=== PATIENT | female | born 1955 | race Caucasian/White ===

== ENCOUNTER 2020-04-15 08:02 | Outpatient (CLI) | payer OTHER, SELFPAY ==
--- NOTE | ~2020-04-15 | DEXA_ITS ---
Bone Density Report Name: Nida Patel Age: 64 Sex: Female Ethnicity: White Date of : 1955 Indication: postmenopausal; height loss; Referring Provider: JAMIE BLACK Study: Bone densitometry was performed. Exam Date: April 15, 2020 Accession number: [id number] Bone Density: Region BMD T-score Z-score Classification AP Spine (L1, L4) 1.149 1.0 2.8 Normal Femoral Neck (Left) 0.713 -1.2 0.3 Osteopenia Total Hip (Left) 0.829 -0.9 0.3 Normal Total Hip Bilateral Avg 0.834 -0.9 0.4 Normal Femoral Neck (Right) 0.693 -1.4 0.1 Osteopenia Total Hip (Right) 0.838 -0.9 0.4 Normal World Health Organization criteria for BMD impression classify patients as: Normal (T-score at or above -1.0), Osteopenia (T-score between -1.0 and -2.5), or Osteoporosis (T-score at or below -2.5). 10-year Fracture Risk(1): Major Osteoporotic Fracture 7.7% Hip Fracture 0.7% Reported Risk Factors: [place] (), Neck BMD=0.693, BMI=39.4 (1) FRAX(R) Version 3.08. Fracture probability calculated for an untreated patient. Fracture probability may be lower if the patient has received treatment. Clinical Information Provided by Patient: Has used the following medications: Vitamin D Patient maximum height was 66 Menopause Age: 50 No regular weight bearing exercise Does not regularly consume dairy products Drinks caffeinated beverages Onset of menses at age 14 Number of children 2 Impression: The patient has low bone mass, based on the Right Femoral Neck T-score. The patient has an estimated ten-year risk of hip fracture of 0.7% and an estimated ten-year risk of major fracture of 7.7%, based on the WHO FRAX algorithm. Discussion: BONE DENSITY IS LOW AT ONE OR MORE SKELETAL SITES. This patient's lowest T-score is low at one or more skeletal sites. It meets the World Health Organization's (WHO) criteria for ?low bone mass? (T-score between -1.0 and -2.5). The patient's 10-year risk of fracture as calculated by FRAX is less than the threshold where pharmacological therapy is recommended by the National Osteoporosis Foundation (NOF). However, all treatment decisions require clinical judgment and consideration of individual patient factors, including patient preferences, comorbidities, previous drug use, risk factors not captured in the FRAX model (e.g., frailty, falls, vitamin D deficiency, increased bone turnover, interval significant decline in bone density) and possible under or overestimation of fracture risk by FRAX. The patient should follow a healthful lifestyle (good nutrition with adequate calcium and vitamin D, and appropriate weight-bearing exercise). Follow-Up: Consider repeating this study in 2 to 3 years to reassess this patient's status, or sooner if there is some new clinical indication. Reported by: AARON on
--- NOTE | ~2020-04-15 | MM_ITS ---
EXAMINATION: MM screening [facility] BI w girish HISTORY: Screening mammogram TECHNIQUE: Craniocaudal and mediolateral oblique 3-D tomosynthesis images were obtained and synthetic 2-D images were generated. CAD analysis was submitted and interpreted. COMPARISON: Comparison to multiple prior studies sequentially, with oldest reviewed study dated 06/2015. BREAST PARENCHYMAL COMPOSITION: There are scattered areas of fibroglandular density. FINDINGS: There is no evidence of suspicious mass, calcification, or architectural distortion to sugg est malignancy in either breast. There has been no suspicious interval change. IMPRESSION: 1. No mammographic evidence of malignancy. 2. Recommend routine screening mammography in one year. BI-RADS Category 1: Negative Reviewed, dictated and finalized at location A.
== END 2020-04-15 08:03 | disposition home or self-care (01) ==
PROVIDERS: Visit Provider Obstetrics & Gynecology
DX: Z12.31 Encounter for screening mammogram for malignant neoplasm of breast (principal); Z78.0 Asymptomatic menopausal state; M85.851 Other specified disorders of bone density and structure, right thigh; M85.852 Other specified disorders of bone density and structure, left thigh
CPT/HCPCS: 77063; 77067; 77080

== ENCOUNTER 2020-08-13 16:14 | Emergency (ER) | payer OTHER, SELFPAY ==
--- NOTE | ~2020-08-13 | XR_ITS ---
EXAMINATION: XR tibia fibula RT 2V INDICATION: Right leg pain TECHNIQUE: Two views of the right tibia and fibula are obtained on four radiographs. COMPARISON: None available FINDINGS: There is soft tissue swelling and laceration immediately over the distal tibia. No underlyi ng fracture is identified. There is moderate osteoarthritis of the knee. Dorsal and plantar calcaneal enthesophytes are noted. IMPRESSION: 1. Soft tissue swelling and laceration over the distal leg without underlying osseous abnormality. Reviewed, dictated and finalized at location A. IMPRESSION: 1. Soft tissue swelling and laceration over the distal leg without underlying o sseous abnormality.
[2020-08-13 16:20] VITALS: BP 121/74; PULSE 77; RESP 16; TEMP 36.6; O2SAT 99
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
[2020-08-13] MEDS: ACETAMINOPHEN 500 MG TABLET 1000 MG PO (17:01)
== END 2020-08-13 17:55 | disposition home or self-care (01) ==
PROVIDERS: Emergency Provider Nurse Practitioner Family
DX: S91.011A Laceration without foreign body, right ankle, initial encounter (principal); V18.4XXA Pedal cycle driver injured in noncollision transport accident in traffic accident, initial encounter; Z87.891 Personal history of nicotine dependence; F98.8 Other specified behavioral and emotional disorders with onset usually occurring in childhood and adolescence; I48.91 Unspecified atrial fibrillation; M19.90 Unspecified osteoarthritis, unspecified site; M17.0 Bilateral primary osteoarthritis of knee; F32.9 Major depressive disorder, single episode, unspecified; K21.9 Gastro-esophageal reflux disease without esophagitis; Z79.01 Long term (current) use of anticoagulants
CPT/HCPCS: 12004; 73590; 99213; A9270; G0463

== ENCOUNTER 2021-04-19 07:33 | Outpatient (CLI) | payer OTHER, SELFPAY ==
--- NOTE | ~2021-04-19 | MM_ITS ---
EXAMINATION: MM screening chris BI w girish HISTORY: Screening mammogram, family history of breast cancer in her sister. TECHNIQUE: Craniocaudal and mediolateral oblique 3-D tomosynthesis images were obtained and synthetic 2-D images were generated. CAD analysis was submitted and interpreted. COMPARISON: 04/15/2020, 11/21/2018, 11/01/2017 BREAST PARENCHYMAL COMPOSITION: There are scattered areas of fibroglandular density. FINDINGS: There is no evidence of suspicious mass, calcification, or architectural distortion to sugg est malignancy in either breast. There has been no suspicious interval change. IMPRESSION: 1. No mammographic evidence of malignancy. 2. Recommend routine screening mammography in one year. BI-RADS Category 1: Negative Reviewed, dictated and finalized at location A.
== END 2021-04-19 07:34 | disposition home or self-care (01) ==
PROVIDERS: Visit Provider Nurse Practitioner
DX: Z12.31 Encounter for screening mammogram for malignant neoplasm of breast (principal)
CPT/HCPCS: 77063; 77067

== ENCOUNTER 2021-12-13 11:13 | Outpatient (CLI) | payer OTHER, SELFPAY | END 2021-12-13 11:14 | disposition home or self-care (01) | LOC: ANHAUDIO 11:14 | PROVIDERS: Visit Provider Otolaryngology | DX: H90.42 Sensorineural hearing loss, unilateral, left ear, with unrestricted hearing on the contralateral side (principal) | CPT/HCPCS: 92557; 92567 ==

== ENCOUNTER → 2022-05-26 14:17 | Outpatient (CLI) | payer OTHER, SELFPAY ==
--- NOTE | ~2022-05-26 | MM_ITS ---
EXAMINATION: MM screening [facility] BI w girish HISTORY: Screening TECHNIQUE: Craniocaudal and mediolateral oblique 3-D tomosynthesis images were obtained and synthetic 2-D images were generated. CAD analysis was submitted and interpreted. COMPARISON: Comparison to multiple prior studies sequentially, with oldest reviewed study dated 09/08. BREAST PARENCHYMAL COMPOSITION: There are scattered areas of fibroglandular density. FINDINGS: There is no evidence of suspicious mass, calcification, or architectural distortion to sugg est malignancy in either breast. There has been no suspicious interval change. IMPRESSION: 1. No mammographic evidence of malignancy. 2. Recommend routine screening mammography in one year. BI-RADS Category 1: Negative Reviewed, dictated and finalized at location A.
== END ==
PROVIDERS: PCP Internal Medicine; Visit Provider Internal Medicine
DX: Z12.31 Encounter for screening mammogram for malignant neoplasm of breast (principal)
CPT/HCPCS: 77063; 77067

== ENCOUNTER 2023-06-29 00:17 | Day surgery (SDC) | payer OTHER, SELFPAY ==
[2023-06-23 11:46] VITALS: BMI 27.6
--- NOTE | 2023-06-28 17:04 | PM.HPGS ---
History of Present Illness History of Present Illness Consent: Risks, benefits, and alternatives have been discussed and questions answered. Patient agrees to proceed with procedure. Chief complaint: hx of polyps Narrative: Nida Patel is a 68 year old female referred for colon cancer screening. Her last colonoscopy was 10 years ago. She had 2 hyperplastic polyps removed at that time. A grandmother had colon cancer. Review of Systems Review of Systems: All systems reviewed & are unremarkable except as noted in HPI and below PMFSH Past Medical History Medical History ADD (attention deficit disorder) Afib Arthritis BMI 35.0-35.9,adult Cataracts, bilateral Degenerative arthritis of knee, bilateral Depression GERD (gastroesophageal reflux disease) Musculoskeletal disorder Lipoma left thigh benign, right Achilles calcified, Rectal polyp Surgical History Surgical History H/O cardiac radiofrequency ablation H/O left knee surgery meniscus scope, 2016 - Dr. Hartmann H/O mastectomy Right breast lumpectomy, benign H/O right knee surgery Meniscus scope, 2008 - Dr Serrano History of intestinal surgery Bowel surgery: Mass removed 07/2016 History of tonsillectomy Previous back surgery Family History Family History Grandparent Carcinoma of colon Sibling Family history of malignant neoplasm of cervix Family history of malignant neoplasm of breast in first degree relative Father Family history of heart disease in male family member before age 55 Hypertension Heart disease Mother Hypertension Heart disease Social History Social History Smoking status: Never smoker Alcohol intake: current Substance use: never Substance use type: does not use Living arrangements: with family Occupation/Education: retired Gender identity (if verbalized by the patient): Female Spiritual care concerns: No Meds Home Medications and Allergies Home Medications Medication Instructions Recorded Confirmed Type bupropion HCl 150 mg 24 hr tablet, 150 mg PO QAM 06/18/20 06/29/23 History extended release magnesium 200 mg tablet 200 mg PO DAILY 06/18/20 06/29/23 History rivaroxaban 20 mg tablet (Xarelto) 20 mg PO DAILY 06/18/20 06/23/23 History rosuvastatin 40 mg tablet 40 mg PO DAILY 06/18/20 06/29/23 History cholecalciferol (vitamin D3) 50 50 mcg PO DAILY 01/18/22 06/29/23 History mcg (2,000 unit) capsule cyanocobalamin (vitamin B-12) 50 50 mcg PO DAILY 01/18/22 06/29/23 History mcg tablet (Vitamin B-12) diltiazem HCl 120 mg capsule,24 120 mg PO DAILY 01/18/22 06/29/23 History hr,extended release (Tiadylt ER) Adult Probiotic 1 cap PO DAILY 06/23/23 06/29/23 History Adults Multivitamin 1 cap PO DAILY 06/23/23 06/29/23 History Glucosamine 1 cap PO DAILY 06/23/23 06/29/23 History Tri-Calcium Citrate 500 mg BYMOUTH DAILY 06/23/23 06/29/23 History Tylenol PM 2 cap PO HS 06/23/23 06/29/23 History acetaminophen 500 mg capsule 500 mg PO Q6H PRN Pain 06/23/23 06/29/23 History pantoprazole 40 mg tablet,delayed 40 mg PO DAILY 06/23/23 06/29/23 History release Allergies Allergy/AdvReac Type Severity Reaction Status Date / Time Sulfa (Sulfonamide Allergy Intermediate Unknown Verified 06/29/23 06:55 Antibiotics) Exam Const: General: alert Orientation/consciousness: patient oriented x3 Resp: Auscultation: clear to auscultation bilaterally Cardio: Rhythm: regular rhythm GI: GI Palp: Yes Soft to palpation and No Tenderness to palpation present (GI) Neuro: General: patient oriented x3 Assessment and Plan Assessment and plan (1) Colon cancer screening: Code(s): Z12.11 - Encounter for screening for malignant neoplasm of colon Status: Acute Assessment and P
[2023-06-29 06:58] VITALS: BP 131/71; PULSE 55; RESP 20; TEMP 36.1; O2SAT 99; BMI 27.7
[2023-06-29] MEDS: LACTATED RINGERS 1,000 ML 150 ML IV CONT (07:02)
--- NOTE | 2023-06-29 07:28 | WPDANESEPPF ---
Anes - Initial Pre Proc Eval Procedure: Operation Date: 06/29/23 08:00 Proposed Procedures p Colonoscopy - John Paul Ibarra MD Date/Time: 06/29/23 07:28 Surgeon: John Paul Ibarra MD Pre Op Diagnosis: hx of polyps Patient Data Age: 68 Gender: F Height: 1.68 m Weight: 78 kg Last Vital Signs Temp 36.1 C L 06/29/23 06:58 Pulse 55 L 06/29/23 06:58 Resp 20 06/29/23 06:58 BP 131/71 06/29/23 06:58 Pulse Ox 99 06/29/23 06:58 O2 Del Method Room Air 06/29/23 06:58 Allergies Allergy/AdvReac Type Severity Reaction Status Date / Time Sulfa (Sulfonamide Allergy Intermediate Unknown Verified 06/29/23 06:55 Antibiotics) Home Medications Medication Instructions Recorded Confirmed Type bupropion HCl 150 mg 24 hr tablet, 150 mg PO QAM 06/18/20 06/29/23 History extended release magnesium 200 mg tablet 200 mg PO DAILY 06/18/20 06/29/23 History rivaroxaban 20 mg tablet (Xarelto) 20 mg PO DAILY 06/18/20 06/23/23 History rosuvastatin 40 mg tablet 40 mg PO DAILY 06/18/20 06/29/23 History cholecalciferol (vitamin D3) 50 50 mcg PO DAILY 01/18/22 06/29/23 History mcg (2,000 unit) capsule cyanocobalamin (vitamin B-12) 50 50 mcg PO DAILY 01/18/22 06/29/23 History mcg tablet (Vitamin B-12) diltiazem HCl 120 mg capsule,24 120 mg PO DAILY 01/18/22 06/29/23 History hr,extended release (Tiadylt ER) Adult Probiotic 1 cap PO DAILY 06/23/23 06/29/23 History Adults Multivitamin 1 cap PO DAILY 06/23/23 06/29/23 History Glucosamine 1 cap PO DAILY 06/23/23 06/29/23 History Tri-Calcium Citrate 500 mg BYMOUTH DAILY 06/23/23 06/29/23 History Tylenol PM 2 cap PO HS 06/23/23 06/29/23 History acetaminophen 500 mg capsule 500 mg PO Q6H PRN Pain 06/23/23 06/29/23 History pantoprazole 40 mg tablet,delayed 40 mg PO DAILY 06/23/23 06/29/23 History release Patient hx anesthesia problems: none Family hx anesthesia problems: none Results Review: All pre-operative results and documents have been reviewed as part of the pre-operative evaluation. [facility] Past Medical History Medical History ADD (attention deficit disorder) Afib Arthritis BMI 35.0-35.9,adult Cataracts, bilateral Degenerative arthritis of knee, bilateral Depression GERD (gastroesophageal reflux disease) Musculoskeletal disorder Lipoma left thigh benign, right Achilles calcified, Rectal polyp Surgical History Surgical History H/O cardiac radiofrequency ablation H/O left knee surgery meniscus scope, 2016 - Dr. Hartmann H/O mastectomy Right breast lumpectomy, benign H/O right knee surgery Meniscus scope, 2008 - Dr Serrano History of intestinal surgery Bowel surgery: Mass removed 07/2016 History of tonsillectomy Previous back surgery Family History Family History Grandparent Carcinoma of colon Sibling Family history of malignant neoplasm of cervix Family history of malignant neoplasm of breast in first degree relative Father Family history of heart disease in male family member before age 55 Hypertension Heart disease Mother Hypertension Heart disease Social History Social History Smoking status: Never smoker Alcohol intake: current Substance use: never Substance use type: does not use Living arrangements: with family Occupation/Education: retired Gender identity (if verbalized by the patient): Female Spiritual care concerns: No Anes - Eval Final PreProcedure Day of Procedure 06/29/23 07:28 Patient weight: overweight Heart: regular rate and rhythm Lungs: clear to auscultation Airway: Mallampati scale class II Neurological: alert and oriented Last oral intake: >/= 8 hours ASA classification: III Emergent: no Anesthetic plan: proceed Anesthesia type and monitoring: general GIVS
[2023-06-29 08:11] VITALS: BP 109/59; PULSE 55; RESP 14; O2SAT 99
[2023-06-29 08:21] VITALS: BP 111/63; PULSE 56; RESP 12; O2SAT 99
== END 2023-06-29 08:45 | disposition home or self-care (01) ==
PROVIDERS: Visit Provider Internal Medicine Gastroenterology
PROC: 0DJD8ZZ Inspection of Lower Intestinal Tract, Via Natural or Artificial Opening Endoscopic (ICD-10-PCS; CPT 45378; principal; 2023-06-29 08:00)
DX: Z12.11 Encounter for screening for malignant neoplasm of colon (principal); K64.8 Other hemorrhoids; Z86.010 Personal history of colon polyps; I48.91 Unspecified atrial fibrillation; F98.8 Other specified behavioral and emotional disorders with onset usually occurring in childhood and adolescence; K21.9 Gastro-esophageal reflux disease without esophagitis; F32.A Depression, unspecified; Z79.01 Long term (current) use of anticoagulants
CPT/HCPCS: G0105; J2704; J7120

== ENCOUNTER 2023-08-01 09:12 | Day surgery (SDC) | payer OTHER, SELFPAY ==
--- NOTE | ~2023-08-01 | XR_ITS ---
EXAMINATION: XR fluoroscopy no charge DATE: 08/01/2023 11:10 CDT INDICATION: RT GENICULAR NERVE BLOCK X 3, VASTUS INTERMEDIUS NERVE BLOCK . TECHNIQUE: 8 fluoroscopic images of the right knee were obtained during right genicular nerve block x 3, vastus intermedius nerve block. I was not present during the procedure. Fluoroscopy exposure time was 24 seconds. Air Kerma 1.46 mGy. COMPARISON: None FINDINGS: Fluoroscopic images demonstrate injection needles about the right knee joint followed by contrast inj ection. IMPRESSION: Fluoroscopic documentation of right jugular nerve block x3, vastus intermedius nerve block. Please re lilibeth to the operative note for complete procedural details . Reviewed, dictated and finalized at location K. IMPRESSION: Fluoroscopic documentation of right jugular nerve block x3, vastus intermedius nerve block. Please refer to the operative note for complete procedural details .
--- NOTE | 2023-08-01 07:29 | WPDHPUPDATE1 ---
History and Physical Update Update Date/Time: 08/01/23 07:29 History and Physical has been reviewed, including an updated exam of the patient. There are NO changes in the patient's condition. Risks, benefits, and alternatives have been discussed and questions answered. Patient agrees to proceed with procedure.
[2023-08-01 10:25] VITALS: BP 116/81; PULSE 59; RESP 18; TEMP 36.6; O2SAT 100
[2023-08-01 11:06] VITALS: BP 133/78; PULSE 61; RESP 23; O2SAT 99
[2023-08-01 11:18] VITALS: BP 142/75; PULSE 61; RESP 15; O2SAT 98
--- NOTE | 2023-08-01 11:18 | W.PM.PROC2 ---
Procedure Note - Detailed Date of Procedure 08/01/23 Pre-op Diagnosis Bilateral Primary Osteoarthritis of Knee, Pain in right knee Post-op Diagnosis Same Procedure Performed Diagnostic blocks of the genicular nerves x3, vastus intermedius nerve x1 of the right knee under fluoroscopic guidance with contrast control. Surgeon Mich Zarate MD Anesthesia Local Indications chronic, recalcitrant right knee pain secondary to osteoarthritis. Description of Procedure INFORMED CONSENT: Risks, benefits and alternatives to the procedure were discussed in detail with the patient who expressed explicit understanding and consent to proceed. Patient was informed verbally and in written form regarding the risks associated with the procedure including the low risk of serious infection, bleeding/bruising, allergic reaction, nerve injury, paralysis, procedural site pain or discomfort, worsening pain and/or mobility, failure to treat and disfigurement. The patient expressed explicit understanding and consent to proceed. All materials required for the procedure were available prior to procedure start. Site and side was marked prior to procedure and confirmed in the presence of the patient. PROCEDURE IN DETAIL: The patient was brought to the procedural suite and placed in the supine position. Patient was made comfortable with use of pillows under the head/shoulder, knees and ankles. Skin overlying anterior, medial and lateral surface of the knee joint on the Right side was prepared broadly with ChloraPrep applicator and draped in a sterile manner. Aseptic technique was used throughout. The intersection between the femoral shaft and the medial femoral condyle, lateral femoral condyle and between the medial tibial plateau and tibial shaft were visualized in the AP view, as well as the line bisecting the femur and perpendicular to the short axis of the joint space 6cm proximal to the superior border of the patella with the knee partially flexed at 120 degrees. Local anesthesia was established by infiltration with approximately 3 mL of 2% lidocaine via a 1-1/2 inch 27-gauge needle at the skin and soft tissues overlying each site. A 25-gauge 3.5 inch quincke spinal needle was advanced until the needle tip contacted periosteum at each location, and was then walked off medially to approximate the position of the Superior and Inferior Medial Genicular nerves or laterally to approximate the position of the Superior Lateral Genicular nerve, and just superficial to femoral periosteum 6cm proximal to the patella to block the Vastus intermedius nerve. Needle depth was verified in the lateral view revealing appropriate needle positioning at each location. 0.5ml of Omnipaque 300 contrast medium was injected at each site confirming appropriate perineural spread of contrast without evidence of intravascular or intra-articular spread. After repeat negative aspiration, 0.5-1.0ml of 0.5% PF Bupivacaine was injected at each site to block the respective nerves. Needle was removed completely intact without difficulty. Images were saved and documented in the patient chart. Patient's skin was cleansed and sterile bandage applied. The patient tolerated the procedure well. The patient was transported to the recovery area in stable condition where they were observed for an appropriate amount of time prior to discharge, without evidence of complication. Patient was instructed on the appropriate completion of a pain diary over the next 12-24 hours. The patient was instructed to avoid excessive activity for the next 48 hours, including climbing and frequent use of stairs. Showers only for 48 hours. They were instructed not to drive or operate heavy machinery for 24 hours. They are to monitor for severe headaches, fevers, chills, night sweats, erythema/swelling at the site or any other signs of infection, bleeding/bruising, bowel or bladder changes as well as new pain, weakness or numbness in the upper or lower extre
[2023-08-01 11:23] VITALS: BP 128/76; PULSE 56; RESP 16; O2SAT 100
--- NOTE | 2023-08-01 11:46 | SUR.PHASEII ---
1135; DR JUSTICE AT BEDSIDE. PT AND SPOUSE ASKED IF SHE COULD PLAY TENNIS TODAY. DR JUSTICE SAID NO, AND NOT TO STRAIN THE KNEE FOR A FEW DAYS. PT ALSO TOLD DR JUSTICE SHE WAS A LITTLE DIZZY AFTER THE PROCEDURE. VITAL SIGNS STABLE. ENCOURAGED PT TO STAND SLOWLY TODAY AND IF DIZZINESS WORSENS OR CONTINUES TO CALL DR JUSTICE'S OFFICE. PT VERBALIZED UNDERSTANDING.
[2023-08-01] MEDS: LIDOCAINE HCL 1% PF INJ 5 ML VIAL 6 ML XX (12:00)
[2023-08-01] MEDS: BUPivacaine HCL 0.5% 10 ML AMP 3 ML INFILTRATE (12:02)
== END 2023-08-01 11:38 | disposition home or self-care (01) ==
PROVIDERS: Visit Provider Anesthesiology Pain Medicine
PROC: (CPT 64454; principal; 2023-08-01 10:30)
DX: M17.11 Unilateral primary osteoarthritis, right knee (principal); M25.561 Pain in right knee
CPT/HCPCS: 64454; 99199

== ENCOUNTER 2023-09-05 05:51 | Day surgery (SDC) | payer OTHER, SELFPAY ==
[2023-09-04 09:42] VITALS: BMI 28.4
--- NOTE | 2023-09-04 13:37 | WPDANESEPPF ---
Anes - Initial Pre Proc Eval Procedure: Operation Date: 09/05/23 07:30 Proposed Procedures p Water Cooled Thermal Radiofrequency Ablation Right Knee Genicular Peripheral Nerve x4 and Vastus Intermedius Peripheral Nerve x1 - Mich Zarate MD Date/Time: 09/04/23 13:37 Surgeon: Mich Zarate MD Pre Op Diagnosis: Bilateral Primary Osteoarthritis Knee Patient Data Age: 68 Gender: F Height: 1.68 m Weight: 80 kg Allergies Allergy/AdvReac Type Severity Reaction Status Date / Time Sulfa (Sulfonamide Allergy Intermediate Unknown Verified 09/05/23 06:17 Antibiotics) Home Medications Medication Instructions Recorded Confirmed Type bupropion HCl 150 mg 24 hr tablet, 150 mg PO QAM 06/18/20 09/04/23 History extended release magnesium 200 mg tablet 200 mg PO DAILY 06/18/20 09/04/23 History rivaroxaban 20 mg tablet (Xarelto) 20 mg PO DAILY 06/18/20 09/05/23 History rosuvastatin 40 mg tablet 40 mg PO DAILY 06/18/20 09/04/23 History cholecalciferol (vitamin D3) 50 50 mcg PO DAILY 01/18/22 09/04/23 History mcg (2,000 unit) capsule cyanocobalamin (vitamin B-12) 50 50 mcg PO DAILY 01/18/22 09/04/23 History mcg tablet (Vitamin B-12) diltiazem HCl 120 mg capsule,24 120 mg PO DAILY 01/18/22 09/04/23 History hr,extended release (Tiadylt ER) Adult Probiotic 1 cap PO DAILY 06/23/23 09/04/23 History Adults Multivitamin 1 cap PO DAILY 06/23/23 09/04/23 History Glucosamine 1 cap PO DAILY 06/23/23 09/04/23 History Tri-Calcium Citrate 500 mg BYMOUTH DAILY 06/23/23 09/04/23 History Tylenol PM 2 cap PO HS 06/23/23 09/04/23 History acetaminophen 500 mg capsule 500 mg PO Q6H PRN Pain 06/23/23 09/04/23 History pantoprazole 40 mg tablet,delayed 40 mg PO DAILY 06/23/23 09/04/23 History release escitalopram oxalate 10 mg tablet mg PO 08/14/23 History potassium chloride 10 mEq 10 meq PO BID 09/04/23 09/04/23 History tablet,extended release Patient hx anesthesia problems: none Family hx anesthesia problems: none Results Review: All pre-operative results and documents have been reviewed as part of the pre-operative evaluation. [facility] Past Medical History Medical History (Updated 09/04/23 @ 13:38 by Simeon Barker DO) ADD (attention deficit disorder) Afib Arthritis BMI 35.0-35.9,adult Cataracts, bilateral Degenerative arthritis of knee, bilateral Depression GERD (gastroesophageal reflux disease) Hyperlipidemia Hypertension Musculoskeletal disorder Lipoma left thigh benign, right Achilles calcified, NEDA (obstructive sleep apnea) Rectal polyp Surgical History Surgical History H/O cardiac radiofrequency ablation H/O left knee surgery meniscus scope, 2016 - Dr. Hartmann H/O mastectomy Right breast lumpectomy, benign H/O right knee surgery Meniscus scope, 2008 - Dr Serrano History of intestinal surgery Bowel surgery: Mass removed 07/2016 History of tonsillectomy Previous back surgery Family History Family History Grandparent Carcinoma of colon Sibling Family history of malignant neoplasm of cervix Family history of malignant neoplasm of breast in first degree relative Father Family history of heart disease in male family member before age 55 Hypertension Heart disease Mother Hypertension Heart disease Social History Social History Smoking status: Never smoker Second hand tobacco smoke exposure: No Alcohol intake: unknown Substance use: never Substance use type: does not use Living arrangements: with family Occupation/Education: retired Gender identity (if verbalized by the patient): Female Sexual Orientation (if Verbalized by the Patient): Straight or Heterosexual Spiritual care concerns: No Anes - Eval Final PreProcedure Day of Procedure 09/04/23 13:37 Patient weight:
--- NOTE | ~2023-09-05 | XR_ITS ---
XR fluoroscopy no charge Indication: Thermal radiofrequency ablation of the right knee TECHNIQUE: Fluoroscopy used during Thermal radiofrequency ablation of the right knee performed by Dr Hamlin [Mich Zarate MD] on 09/05/2023. 7 fluoroscopic images. FINDINGS: Correlate with procedure note. IMPRESSION: Fluoroscopy used during Thermal radiofrequency ablation of the right knee. Please refer t o procedural report for details. Reviewed, dictated and finalized at location A. IMPRESSION: Fluoroscopy used during Thermal radiofrequency ablation of the righ t knee. Please refer to procedural report for details.
--- NOTE | 2023-09-05 05:36 | WPDHPUPDATE1 ---
History and Physical Update Update Date/Time: 09/05/23 05:36 History and Physical has been reviewed, including an updated exam of the patient. There are NO changes in the patient's condition. Risks, benefits, and alternatives have been discussed and questions answered. Patient agrees to proceed with procedure.
[2023-09-05 06:18] VITALS: BP 114/69; PULSE 60; RESP 18; O2SAT 98
[2023-09-05 06:21] VITALS: BMI 27.7
[2023-09-05] MEDS: LACTATED RINGERS 1,000 ML 30 ML IV CONT ×2 (06:38→09:10)
[2023-09-05] MEDS: LIDOCAINE HCL 2% PF INJ 5 ML VIAL 10 ML INFILTRATE (08:32)
[2023-09-05] MEDS: LIDOCAINE HCL 1% PF INJ 5 ML VIAL INFILTRATE (08:33)
[2023-09-05] MEDS: BUPivacaine HCL 0.5% 10 ML AMP 5 ML INFILTRATE (08:33)
[2023-09-05 08:43] VITALS: BP 113/65; PULSE 54; RESP 14; O2SAT 100
--- NOTE | 2023-09-05 08:46 | W.PM.PROC2 ---
Procedure Note - Detailed Date of Procedure 09/05/23 Pre-op Diagnosis Bilateral Primary Osteoarthritis Knee, Pain in Right Knee Post-op Diagnosis Same Procedure Performed Water cooled radiofrequency ablation of the genicular nerve times 3, vastus intermedius nerve x1 and lateral inferior genicular nerve articular branches supplying the right knee joint under fluoroscopic guidance Surgeon Mich Zarate MD Anesthesia MAC and Local Indications chronic recalcitrant right knee pain secondary to osteoarthritis Description of Procedure INFORMED CONSENT: Risks, benefits and alternatives to the procedure were discussed in detail with the patient who expressed explicit understanding and consent to proceed. Patient was informed verbally and in written form regarding the risks associated with the procedure including the low risk of serious infection, bleeding/bruising, allergic reaction, nerve injury, paralysis, procedural site pain or discomfort, worsening pain and/or mobility, failure to treat and disfigurement. The patient expressed explicit understanding and consent to proceed. All materials required for the procedure were available prior to procedure start. Site and side was marked prior to procedure and confirmed in the presence of the patient. PROCEDURE IN DETAIL: The patient was brought to the procedural suite and placed in the supine position. Patient was made comfortable with use of pillows under the head/shoulder, knees and ankles. Skin overlying anterior, medial and lateral surface of the knee joint on the right side was prepared broadly with ChloroPrep applicator and draped in a sterile manner. Aseptic technique was used throughout. The intersection between the femoral shaft and the medial femoral condyle, lateral femoral condyle and between the medial tibial plateau and tibial shaft were visualized in the AP view with the knee extended at 180 degrees. Local anesthesia was established by infiltration with approximately 3 mL of 2% lidocaine via a 1-1/2 inch 27-gauge needle at the skin and soft tissues overlying each site. One 17-gauge 100 mm [employer] water-cooled RF cannula was advanced until the needle tip contacted periosteum at the intersection of the medial femoral condyle and femoral shaft and advanced medially and posteriorly until approximating the position of the medial superior genicular nerve. Impedance levels were within normal limits. Motor testing was performed at a frequency of 2 Hz to a current of 3.0 mAmps through each needle with no evidence of motor stimulation. After negative aspiration, 2ml of a 1:1 admixture of 0.25% PF Bupivacaine and 2% lidocaine was injected at the intended site to establish anesthesia. Needle stylette was replaced with a water-cooled electrode from the kitchen food assembler-supplied kit. After a 90s delay, lesioning was then performed at the target site for 150s to a temperature of 60 degrees Centigrade. The needle was then retracted 10mm and repeat lesions were performed in a similar manner. [place] were then re-styletted and removed without difficulty. Needle was then repositioned to contact the periosteum at the location of the remaining targeted peripheral nerves and advanced medially and dorsally to approximate the position of the Inferior Medial Genicular nerve, laterally and dorsally to approximate the position of the Superior Lateral Genicular nerve just past midshaft in each location, and just above periosteum at the midline of the femoral shaft approximately 6cm superior to the superior patellar border to approximate the position of the vastus intermedius nerve. Additional needle was placed at the distal third of the fibular side of the proximal tib-fib articulation to approximate the position of the lateral inferior genicular nerve articular branches. After a 90s delay, lesioning was then performed at each additional target site for 150s to a temperature of 60 degrees Centigrade. The needle was then re
[2023-09-05 08:53] VITALS: BP 113/67; PULSE 50; RESP 14; O2SAT 98
[2023-09-05 09:03] VITALS: BP 113/73; PULSE 50; RESP 16; O2SAT 97
[2023-09-05 09:13] VITALS: BP 115/73; PULSE 60; RESP 16; O2SAT 99
--- NOTE | 2023-09-05 12:20 | WPDANESPN ---
Anes - Prog Note Post-Op Date/Time: 09/05/23 12:20 Cardiovascular status: normal Respiratory status: normal Airway patency: baseline Mental status: baseline Post-Op hydration status: normal Vital Signs: Last Vital Signs Pulse 60 09/05/23 09:13 Resp 16 09/05/23 09:13 BP 115/73 09/05/23 09:13 Pulse Ox 99 09/05/23 09:13 O2 Del Method Room Air 09/05/23 09:13 O2 Flow Rate 8 09/05/23 08:43 Pain Score (VAS): 1 I/O: Intake & Output 09/04/23 09/05/23 09/05/23 23:59 07:59 15:59 Intake Total 1100 Balance 1100 Post-procedural complaints: none Patient Feedback: Patient satisfied with anesthetic care. Other Findings: Patient vital signs back to baseline. Patient denies nausea and vomiting. Patient's pain under control. Patient OK for discharge.
== END 2023-09-05 09:36 | disposition home or self-care (01) ==
LOC: ASC 05:59
PROVIDERS: Visit Provider Anesthesiology Pain Medicine
PROC: (CPT 64624; principal; 2023-09-05 07:30)
DX: M17.11 Unilateral primary osteoarthritis, right knee (principal); M25.561 Pain in right knee
CPT/HCPCS: 64624; 99199

== ENCOUNTER → 2023-09-19 11:16 | Outpatient (CLI) | payer OTHER, SELFPAY ==
--- NOTE | ~2023-09-19 | US_ITS ---
EXAMINATION: US thyroid DATE: 09/19/2023 11:34 INDICATION: Disorder of thyroid, unspecified. TECHNIQUE: Multiple ultrasound images of the thyroid were obtained. COMPARISON: None. FINDINGS: The right thyroid lobe measures 4.8 x 1.9 x 1.7 cm. The left thyroid lobe measures 4.8 x 2.0 x 2.0 c m. The thyroid demonstrates heterogeneous echogenicity. Vascularity is increased. In the right thyro id lobe, there is a 5 mm solid, hypoechoic, wider than tall nodule with smooth margin without echogen ic foci (TI-RADS TR4). In the right thyroid lobe, there is a 7 mm solid, hypoechoic, wider than tall nodule with smooth margin without echogenic foci (TR4). In the left thyroid lobe, there is a 2.5 cm s olid, isoechoic, wider than tall nodule ill-defined margin without echogenic foci (TR3). In the right thyroid lobe, there is a 12 mm solid, hypoechoic, wider than tall nodule with lobulated margin witho ut echogenic foci (TR4). IMPRESSION: 1. Multinodular goiter. Ultrasound-guided fine aspiration of the 2.5 cm left thyroid nodule is recomm ended. 2. Heterogeneous, hypervascular thyroid, likely chronic lymphocytic (Anurag) thyroiditis. Reviewed, dictated and finalized at location A. T SPECIALIST IMPRESSION: 1. Multinodular goiter. Ultrasound-guided fine aspiration of the 2.5 cm left th yroid nodule is recommended. 2. Heterogeneous, hypervascular thyroid, likely chronic lymphocytic (Anurag) thyroiditis.
== END ==
PROVIDERS: Visit Provider Nurse Practitioner
DX: E04.2 Nontoxic multinodular goiter (principal)
CPT/HCPCS: 76536

== ENCOUNTER → 2023-10-06 09:54 | Outpatient (CLI) | payer OTHER, SELFPAY ==
--- NOTE | ~2023-10-06 | MM_ITS ---
EXAMINATION: MM screening chris BI w girish HISTORY: Screening mammogram TECHNIQUE: Craniocaudal and mediolateral oblique 3-D tomosynthesis images were obtained and synthetic 2-D images were generated. CAD analysis was submitted and interpreted. COMPARISON: 05/26/2022, 04/19/2021, 04/15/2020 bilateral screening mammogram examinations BREAST PARENCHYMAL COMPOSITION: The breasts are heterogeneously dense, which may obscure small masses . FINDINGS: There is no evidence of suspicious mass, calcification, or architectural distortion to sugg est malignancy in either breast. There has been no suspicious interval change. IMPRESSION: 1. No mammographic evidence of malignancy. 2. Recommend routine screening mammography in one year. BI-RADS Category 1: Negative Reviewed, dictated and finalized at location A. GEMENT ENGINEER
== END ==
PROVIDERS: Visit Provider Obstetrics & Gynecology Gynecology
DX: Z12.31 Encounter for screening mammogram for malignant neoplasm of breast (principal)
CPT/HCPCS: 77063; 77067

== ENCOUNTER 2023-12-22 09:11 | Outpatient (CLI) | payer OTHER, SELFPAY ==
--- NOTE | ~2023-12-22 | DEXA_ITS ---
Bone Density Report Name: KEVIN BADILLO Age: 68 Sex: Female Ethnicity: White Date of : 1955 Indication: postmenopausal; screening for osteoporosis; Referring Provider: MELLO GRECO Study: Bone densitometry was performed. Exam Date: December 22, 2023 Accession number: [id number] Bone Density: Region BMD T-score Z-score Classification AP Spine (L1-L4) 1.150 0.9 2.9 Normal Femoral Neck (Left) 0.573 -2.5 -0.8 Osteoporosis Total Hip (Left) 0.680 -2.1 -0.7 Osteopenia Femoral Neck (Right) 0.581 -2.4 -0.7 Osteopenia Total Hip (Right) 0.647 -2.4 -1.0 Osteopenia Total Hip Mean 0.664 -2.3 -0.9 Osteopenia World Health Organization criteria for BMD impression classify patients as: Normal (T-score at or above -1.0), Osteopenia (T-score between -1.0 and -2.5), or Osteoporosis (T-score at or below -2.5). 10-year Fracture Risk: FRAX not reported because: Some T-score for Spine Total or Hip Total or Femoral Neck at or below -2.5 Previous Exams: Region Exam Age BMD T-score BMD Change BMD Change Date g/cm2 vs Baseline vs Previous AP Spine(L1-L4) 12/22/2023 68 1.150 0.9 -0.116* -0.106* 12/23/2011 56 1.255 1.9 -0.011 -0.020 05/15/2009 54 1.275 2.1 0.009 0.009 09/18/2006 51 1.266 2.0 Total Hip(Left) 12/22/2023 68 0.680 -2.1 -0.323* -0.217* 11/02/2017 62 0.897 -0.4 -0.106* -0.060 11/20/2014 59 0.957 0.1 -0.046 0.011 12/23/2011 56 0.946 0.0 -0.057* -0.055 05/15/2009 54 1.001 0.5 -0.002 -0.002 09/18/2006 51 1.003 0.5 Total Hip(Right) 12/22/2023 68 0.647 -2.4 -0.313* -0.209* 11/02/2017 62 0.857 -0.7 -0.104* -0.010 11/20/2014 59 0.867 -0.6 -0.094 -0.031 12/23/2011 56 0.898 -0.4 -0.063* -0.083 05/15/2009 54 0.981 0.3 0.021 0.021 09/18/2006 51 0.960 0.2 *Denotes significance at 95% confidence level, LSC for AP Spine = 0.022 g/cm2, LSC for Total Hip = 0.027 g/cm2 Clinical Information Provided by Patient: Has used the following medications: Vitamin D, Calcium Patient maximum height was 66 Menopause Age: 53 Drinks caffeinated beverages Onset of menses at age 14 Number of children 2 Impression: The patient has osteoporosis, based on the Left Femoral
== END 2023-12-22 09:12 ==
PROVIDERS: Visit Provider Obstetrics & Gynecology Gynecology
DX: Z78.0 Asymptomatic menopausal state (principal); M85.88 Other specified disorders of bone density and structure, other site; M81.0 Age-related osteoporosis without current pathological fracture; M85.852 Other specified disorders of bone density and structure, left thigh; M85.851 Other specified disorders of bone density and structure, right thigh
CPT/HCPCS: 77080

== ENCOUNTER 2024-05-25 15:16 | Emergency (ER) | payer OTHER, SELFPAY ==
[2024-05-25] VITALS (9 sets, daily range): BP systolic 117–148; BP diastolic 65–85; PULSE 55–61; RESP 16–17; TEMP 36.4; O2SAT 96–100
--- NOTE | ~2024-05-25 | XR_ITS ---
EXAMINATION: XR chest 1V portable DATE: 05/25/2024 18:51 INDICATION: Shortness of breath and epigastric versus chest pain. TECHNIQUE: frontal view of the chest was obtained. COMPARISON: Chest radiograph dated 03/28/2019 FINDINGS: The lungs are clear with no focal airspace opacities, pulmonary edema, pleural effusion or pneumothor ax. Heart size is normal. Calcified right hilar and mediastinal lymph nodes consistent with old granu lomatous disease. Old healed right clavicle fracture. IMPRESSION: 1. No acute cardiopulmonary disease. Reviewed, dictated and finalized at location A.
--- NOTE | ~2024-05-25 | CT_ITS ---
EXAMINATION: CT abdomen pelvis w con DATE: 05/25/2024 18:30 INDICATION: Epigastric pain. TECHNIQUE: Computed tomography (CT) of the abdomen and pelvis was performed with 100 mL Omnipaque-350 intravenous contrast. Automated exposure control and iterative reconstruction technique were employe d. The dose-length product was 757.72 mGy-cm. COMPARISON: 08/18/2016 FINDINGS: Calcite nodules in the right lower lobe consistent with old granulomatous disease. Heart size is norm al. Atherosclerotic coronary artery calcifications. No pericardial or pleural effusion. Small sliding -type hiatal hernia. Postoperative change of prior gastric bypass procedure with jejunojejunal anasto mosis in the left abdomen. A couple hepatic cysts the larger measuring 3.2 cm in the left hepatic lob e. Normal nondilated gallbladder with no wall thickening or pericholecystic inflammatory stranding to suggest acute cholecystitis. No intra or extrahepatic biliary ductal dilation. Pancreas, spleen, peter ateral adrenal glands and kidneys are normal. Normal appendix. Moderate amount stool in the ascending colon, mild gaseous distention of the transverse colon and decompression of the more distal colon. N o bowel obstruction. On the sagittal images there is a 360 degree several of the mesenteric vessels e xtending to the small bowel within the left abdomen. Contrast opacified mesenteric arteries are seen extending towards the small bowel this region which demonstrated similar enhancement to the remainder of the bowels. There is however associated mesenteric edema and the draining veins appear relatively engorged suggesting mesenteric congestion. Bladder, uterus and bilateral adnexa are unremarkable. Sm all amount of likely physiologic free fluid in the cul-de-sac. No abscess or free intraperitoneal gas . Scattered nonhemodynamically significant calcified atherosclerosis of the aorta and many of the ot er arteries. No pathologically enlarged abdominal or pelvic lymphadenopathy. Severe lumbar spondylosi s. IMPRESSION: 1. Suggestive of mesenteric congestion with mesenteric edema and dilated veins extending into multipl e loops of small bowel in the left abdomen which appears to result from a 360 degree of volvulus of t he associated mesentery. There are associated mesenteric arteries however remain opacified in their i s no hypoenhancement of the associated small bowel to suggest jania ischemia. Reviewed, dictated and finalized at location A. IMPRESSION: 1. Suggestive of mesenteric congestion with mesenteric edema and dilated veins extending into multiple loops of small bowel in the left abdomen which appears to result from a 360 degree of volvulus of the associated mesentery. There are associated mesenteric arteries however remain opacified in their is no hypoenha ncement of the associated small bowel to suggest jania ischemia.
--- NOTE | 2024-05-25 17:41 | ED.ABDPAIN ---
HPI - Abdominal Pain General Chief Complaint: Abdominal Pain Stated Complaint: abd pain Time Seen by Provider: 05/25/24 17:22 Source: patient and family ( Miguelangel) Mode of arrival: ambulatory Limitations: no limitations History of Present Illness HPI narrative: Patient presents with acute onset epigastric abdominal pain starting approximately 12 noon just after eating lunch. She was otherwise in her baseline state of health earlier today and played tennis. She denies any associated nausea or vomiting. She did have diarrhea x1 this morning. No palliating or provoking factors. She describes it as an achiness or cramp, not sharp. She states that has been worsening throughout that afternoon. It radiates up into her chest as well as towards her back. She was concerned because her brother has been having vague abdominal/chest pain in December of this year and waited several days and was found to be having a myocardial infarction at the age of 56. Last oral intake lunch around noon and then a few bites of yogurt just prior to arrival. Still has an appetite. No fevers. THis has never happened before. No cough. 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 She has been taking her vitamins. LBM was this morning (the diarrhea); not passing flatus. Related Data Home Medications Medication Instructions Recorded Confirmed bupropion HCl 150 mg 24 hr tablet, 150 mg PO QAM 06/18/20 09/04/23 extended release magnesium 200 mg tablet 200 mg PO DAILY 06/18/20 09/04/23 rivaroxaban 20 mg tablet (Xarelto) 20 mg PO DAILY 06/18/20 09/05/23 rosuvastatin 40 mg tablet 40 mg PO DAILY 06/18/20 09/04/23 cholecalciferol (vitamin D3) 50 50 mcg PO DAILY 01/18/22 09/04/23 mcg (2,000 unit) capsule cyanocobalamin (vitamin B-12) 50 50 mcg PO DAILY 01/18/22 09/04/23 mcg tablet (Vitamin B-12) diltiazem HCl 120 mg capsule,24 120 mg PO DAILY 01/18/22 09/04/23 hr,extended release (Tiadylt ER) Adult Probiotic 1 cap PO DAILY 06/23/23 09/04/23 Adults Multivitamin 1 cap PO DAILY 06/23/23 09/04/23 Glucosamine 1 cap PO DAILY 06/23/23 09/04/23 Tri-Calcium Citrate 500 mg BYMOUTH DAILY 06/23/23 09/04/23 Tylenol PM 2 cap PO HS 06/23/23 09/04/23 acetaminophen 500 mg capsule 500 mg PO Q6H PRN Pain 06/23/23 09/04/23 pantoprazole 40 mg tablet,delayed 40 mg PO DAILY 06/23/23 09/04/23 release escitalopram oxalate 10 mg tablet mg PO 08/14/23 potassium chloride 10 mEq 10 meq PO BID 09/04/23 09/04/23 tablet,extended release Allergies Allergy/AdvReac Type Severity Reaction Status Date / Time Sulfa (Sulfonamide Allergy Intermediate Unknown Verified 05/25/24 15:16 Antibiotics) [facility] Past Medical History Medical History (Updated 05/25/24 @ 19:38 by Loly Gongora MD) ADD (attention deficit disorder) Afib Arthritis Cataracts, bilateral Degenerative arthritis of knee, bilateral Depression GERD (gastroesophageal reflux disease) History of lipoma on abdomen, removed Hyperlipidemia Hypertension Musculoskeletal disorder Lipoma left thigh benign, right Achilles calcified, NEDA (obstructive sleep apnea) Rectal polyp Surgical History Surgical History H/O cardiac radiofrequency ablation H/O gastric bypass August 2021; [facility] H/O left knee surgery meniscus scope, 2016 - Dr. 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
--- NOTE | 2024-05-25 17:49 | ECG_ITS ---
Test Date: 2024-05-25 18:06:20 Measurements Intervals [place] Rate: 47 P: 75 ME: 125 QRS: 50 QRSD: 100 T: 9 QT: 455 QTc: 406 Interpretive Statements SINUS BRADYCARDIA INCOMPLETE RIGHT BUNDLE BRANCH BLOCK NONSPECIFIC ST & T-WAVE ABNORMALITY- ANT/INF LEADS ABNORMAL ECG No previous ECG available for comparison Electronically Signed On 05-25-2024 19:51:25 CDT by Ru Ribera D.O.
[2024-05-25 18:19] LABS: Basophils Percent Auto 0.7 % (0.2-1.2); Eosinophils Absolute Auto 0.2 K/mm3 (0-0.3); Eosinophils Percent Auto 2.7 % (0-4.4); Hemoglobin 11.9 g/dL (12.0-15.0); Immature Granulocyte Absolute 0.02 K/mm3 (0.00-0.031); Immature Granulocyte Percent A 0.3 % (0-0.5); Lymphocytes Absolute Auto 1.64 K/mm3 (0.9-3.2); Lymphocytes Percent Auto 28.2 % (18.3-44.2); Mean Corpuscular HGB Conc 33.1 g/dl (32-36); Mean Corpuscular Hemoglobin 31.1 pg (26-34); Mean Platelet Volume 10.5 fl (7.4-10.4); Monocytes Absolute Auto 0.4 K/mm3 (0.1-0.6); Monocytes Percent Auto 6.4 % (2.6-8.5); Neutrophils Absolute Auto 3.6 K/mm3 (1.3-6.7); Neutrophils Percent Auto 61.7 % (45.5-73.1); Platelet Count Result 172 k/mm3 (150-375); Red Blood Count 3.83 M/mm3 (4.2-5.4); Red Cell Distribution Width 12.6 % (11.5-14.5); White Blood Count 5.8 K/mm3 (4.5-10.0)
[2024-05-25 18:29] LABS: Estimated CRCL calculation 61 ml/min; Estimated Glomerular Filt Rate > 60
[2024-05-25 18:37] LABS: Alanine Aminotransferase 31 U/L (6-35); Albumin Level 3.6 g/dL (3.5-5.1); Alkaline Phosphatase 101 U/L (38-126); Anion Gap 5 mmol/L (4-12); Aspartate Amino Transferase 34 U/L (14-36); Bilirubin,Total 0.4 mg/dL (0.2-1.3); Blood Urea Nitrogen 12 mg/dL (7-17); Calcium 8.9 mg/dL (8.4-10.2); Carbon Dioxide 30 mmol/L (22-30); Chloride 101 mmol/L (98-107); Estimated CRCL calculation 69 ml/min; Estimated Glomerular Filt Rate > 60; Glucose 88 mg/dL (65-110); Lipase 55 U/L (23-300); Potassium 3.9 mmol/L (3.4-5.0); Sodium 136 mmol/L (137-145)
[2024-05-25 18:44] LABS: Troponin I < 0.012 ng/mL (0.000-0.034)
[2024-05-25 19:38] LABS: Magnesium 1.8 mg/dL (1.6-2.3)
[2024-05-25] MEDS: HYDROmorphone HCL INJ (*CRX) 1 MG/ML SYR 0.5 MG IV PUSH (19:53)
[2024-05-25 19:54] LABS: Lactic Acid Reflex 0.7 mmol/L (0.7-2.0)
[2024-05-25] MEDS: SODIUM CHLORIDE 0.9% IV 1,000 ML 999 ML IV CONT (20:02)
--- NOTE | 2024-05-25 20:20 | PC.NURSE ---
This RN spoke with Dana from [facility] and answered all triage questions. Pt awaiting bed placement.
[2024-05-25 20:50] LABS: INR 1.1; Prothrombin Time 15.2 Seconds (11.1-14.7)
--- NOTE | 2024-05-25 21:14 | PC.NURSE ---
report called to CHRISTINE Cortez at [facility]. Pt awaiting transport.
== END 2024-05-25 21:38 | disposition short-term general hospital (02) ==
PROVIDERS: Emergency Provider Student in an Organized Health Care Education/Training Program
DX: D64.9 Anemia, unspecified (principal); I48.91 Unspecified atrial fibrillation; I10 Essential (primary) hypertension; E78.5 Hyperlipidemia, unspecified; K21.9 Gastro-esophageal reflux disease without esophagitis; G47.33 Obstructive sleep apnea (adult) (pediatric); M17.0 Bilateral primary osteoarthritis of knee; F32.A Depression, unspecified; F98.8 Other specified behavioral and emotional disorders with onset usually occurring in childhood and adolescence; Z98.84 Bariatric surgery status; Z87.19 Personal history of other diseases of the digestive system; Z79.899 Other long term (current) drug therapy; Z79.01 Long term (current) use of anticoagulants; R00.1 Bradycardia, unspecified; I45.10 Unspecified right bundle-branch block; R94.31 Abnormal electrocardiogram [ECG] [EKG]; R93.5 Abnormal findings on diagnostic imaging of other abdominal regions, including retroperitoneum
CPT/HCPCS: 36415; 71045; 74177; 80053; 83605; 83690; 83735; 84484; 85025; 85610; 85730; 93005; 96361; 96374; 99285; J1170; J7030; Q9967

== ENCOUNTER 2025-06-25 11:23 | Outpatient (CLI) | payer OTHER, SELFPAY ==
--- NOTE | ~2025-06-25 | MM_ITS ---
EXAMINATION: MM screening chris BI w girish HISTORY: Screening mammogram, family history of breast cancer in her sister. TECHNIQUE: Craniocaudal and mediolateral oblique 3-D tomosynthesis images were obtained and synthetic 2-D images were generated. CAD analysis was submitted and interpreted. COMPARISON: 10/06/2023, 05/26/2022, 04/19/2021 BREAST PARENCHYMAL COMPOSITION:Dense: The breasts are heterogeneously dense, which may obscure small masses. FINDINGS: No suspicious mass, calcification, or architectural distortion are identified in either breast to suggest malignancy. There has been no suspicious interval change. IMPRESSION: No mammographic evidence of malignancy. Recommend routine screening mammography in one year. BI-RADS Category 1: Negative Reviewed, dictated and finalized at location .
== END 2025-06-25 11:24 | disposition home or self-care (01) ==
PROVIDERS: Visit Provider Obstetrics & Gynecology Gynecology
DX: Z12.31 Encounter for screening mammogram for malignant neoplasm of breast (principal)
CPT/HCPCS: 77063; 77067

== ENCOUNTER 2025-10-27 23:38 | Emergency (ER) | payer OTHER, SELFPAY ==
--- NOTE | ~2025-10-27 | XR_ITS ---
Examination: XR chest 2V Clinical History: chest pain Comparison: 05/25/2024 Technique: PA and Lateral Findings: Cardiomediastinal silhouette normal size and configuration. Lungs clear. Mediastinal and hilar calcifications. No acute bony abnormality. IMPRESSION: 1. No acute cardiopulmonary findings. Reviewed, dictated and finalized at location R. COMMUNICATIONS PROJECT MANAGER
[2025-10-27 23:39] VITALS: BP 129/22; PULSE 57; RESP 15; TEMP 36.7; O2SAT 100
--- NOTE | 2025-10-27 23:39 | ECG_ITS ---
Test Date: 2025-10-27 23:45:46 Measurements Intervals [place] Rate: 55 P: 75 [place]: 122 QRS: 61 QRSD: 96 T: 37 QT: 437 QTc: 418 Interpretive Statements SINUS BRADYCARDIA INCOMPLETE RIGHT BUNDLE BRANCH BLOCK BORDERLINE ECG Compared to ECG 05/25/2024 18:06:20 HEART RATE HAS INCREASED Electronically Signed On 10-28-2025 07:09:40 COMMERCIAL PARTS PROFESSIONAL by Ru Ribera D.O.
[2025-10-28] VITALS (7 sets, daily range): BP systolic 105–116; BP diastolic 65–69; PULSE 50–54; RESP 14–19; TEMP 36.6; O2SAT 97–99
[2025-10-28 00:09] LABS: Hematocrit 37.2 % (37.0-47.0); Hemoglobin 12.4 g/dL (12.0-15.0); Immature Granulocyte Percent A 0.3 % (0-0.5); Lymphocytes Absolute Auto 2.73 K/mm3 (0.9-3.2); Mean Corpuscular HGB Conc 33.3 g/dl (32-36); Mean Corpuscular Hemoglobin 31.7 pg (26-34); Mean Corpuscular Volume 95.1 fl (80-100); Nucleated Red Blood Cells Absolute Auto 0.000 K/mm3 (0.0-0.012); Nucleated Red Blood Cells Perc 0.0 % (0.0-0.2); Platelet Count Result 187 k/mm3 (150-375); Red Blood Count 3.91 M/mm3 (4.2-5.4); White Blood Count 6.8 K/mm3 (4.5-10.0)
[2025-10-28 00:19] LABS: Alanine Aminotransferase 69 U/L (6-35); Albumin Level 3.7 g/dL (3.5-5.1); Alkaline Phosphatase 84 U/L (38-126); Anion Gap 5 mmol/L (4-12); Aspartate Amino Transferase 59 U/L (14-36); Bilirubin,Total 0.4 mg/dL (0.2-1.3); Blood Urea Nitrogen 12 mg/dL (7-17); Calcium 9.0 mg/dL (8.4-10.2); Carbon Dioxide 28 mmol/L (22-30); Chloride 105 mmol/L (98-107); Estimated Glomerular Filt Rate > 60; Glucose 76 mg/dL (65-110); Lipase 93 U/L (23-300); Potassium 4.1 mmol/L (3.4-5.0); Sodium 138 mmol/L (137-145); Total Protein 6.6 g/dL (6.3-8.2)
[2025-10-28 00:20] LABS: INR 1.9; Prothrombin Time 21.5 Seconds (11.1-14.7)
[2025-10-28 00:21] LABS: Partial Thromboplastin Time 49.7 Seconds (22.3-36.8)
[2025-10-28 00:31] LABS: Troponin I < 0.012 ng/mL (0.000-0.034)
--- NOTE | 2025-10-28 02:37 | ECG_ITS ---
Test Date: 2025-10-28 02:43:02 Measurements Intervals [place] Rate: 48 P: 55 NC: 135 QRS: 51 QRSD: 92 T: 16 QT: 453 QTc: 408 Interpretive Statements SINUS BRADYCARDIA INCOMPLETE RIGHT BUNDLE BRANCH BLOCK BORDERLINE ST-T WAVE ABNORMALITY- INFERIOR LEADS ABNORMAL ECG Compared to ECG 10/27/2025 23:45:46 HEART RATE HAS DECREASED Electronically Signed On 10-28-2025 07:10:14 [employer] WR[employer]PER by Ru Ribera D.O.
[2025-10-28 03:14] LABS: Troponin I < 0.012 ng/mL (0.000-0.034)
--- NOTE | 2025-10-28 03:34 | ED.GENADULT ---
HPI - General Adult General Chief complaint: Chest Pain Stated complaint: chest pain woke her from sleep Time Seen by Provider: 10/28/25 02:06 History of Present Illness HPI narrative: Patient is 70-year-old female presents emergency department chief complaint chest pain patient reports that she has prior history of atrial fibrillation and takes Xarelto the patient states that this evening she went to bed and woke up having midsternal chest discomfort patient states that lasted for about 20 minutes reports that it is centrally resolved by this point patient did report that she took 2 doses of 2 baby aspirin prior to arrival patient reports that at this time the pain is essentially gone Related Data Home Medications ?Medication ?Instructions ?Recorded ?Confirmed ?Last Taken ?Type bupropion HCl 150 mg 24 hr tablet, 150 mg PO QAM 06/18/20 09/04/23 07/28/23 History extended release magnesium 200 mg tablet 200 mg PO DAILY 06/18/20 09/04/23 08/01/23 History rivaroxaban 20 mg tablet (Xarelto) 20 mg PO DAILY 06/18/20 09/05/23 09/03/23 History rosuvastatin 40 mg tablet 40 mg PO DAILY 06/18/20 09/04/23 08/01/23 History cholecalciferol (vitamin D3) 50 50 mcg PO DAILY 01/18/22 09/04/23 08/01/23 History mcg (2,000 unit) capsule cyanocobalamin (vitamin B-12) 50 50 mcg PO DAILY 01/18/22 09/04/23 08/01/23 History mcg tablet (Vitamin B-12) diltiazem HCl 120 mg capsule,24 120 mg PO DAILY 01/18/22 09/04/23 08/01/23 History hr,extended release (Tiadylt ER) Adult Probiotic 1 cap PO DAILY 06/23/23 09/04/23 08/01/23 History Adults Multivitamin 1 cap PO DAILY 06/23/23 09/04/23 08/01/23 History Glucosamine 1 cap PO DAILY 06/23/23 09/04/23 08/01/23 History Tri-Calcium Citrate 500 mg BYMOUTH DAILY 06/23/23 09/04/23 08/01/23 History Tylenol PM 2 cap PO HS 06/23/23 09/04/23 06/28/23 History acetaminophen 500 mg capsule 500 mg PO Q6H PRN Pain 06/23/23 09/04/23 06/28/23 History pantoprazole 40 mg tablet,delayed 40 mg PO DAILY 06/23/23 09/04/23 08/01/23 History release escitalopram oxalate 10 mg tablet mg PO 08/14/23 Unknown History potassium chloride 10 mEq 10 meq PO BID 09/04/23 09/04/23 Unknown History tablet,extended release Allergies Allergy/AdvReac Type Severity Reaction Status Date / Time Sulfa (Sulfonamide Allergy Intermediate Unknown Verified 05/25/24 15:16 Antibiotics) Review of Systems Review of Systems: A 10 system review of systems was completed on the patient and is negative except for what is stated in the HPI. Nursing and ancillary documentation was reviewed. 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 Hartmann Family History Family History Grandparent Carcinoma of colon Sibling Family history of malignant neoplasm of cervix Family history of malignant neoplasm of breast in first degree relative Father Family history of heart disease in male family member before age 55 Hypertension Heart disease Mother Hypertension Heart disease Sibling Acute myocardial infarction, Onset Age: 56 Social History Social History Smoking status: Never smoker Second hand tobacco smoke exposure: No Alcohol intake: unknown Substance use: never Substance use type: does not use Living arrangements: with family Additional living arrangements comments: [facility] Occupation/Education: retired Additional occupation/education comments: Physically active, plays tennis recreationally Gender identity (if verbalized by the patient): Female Sexual Orientation (if Verbalized by the Patient): Straight or Heterosexual Spiritual care concerns: No Exam Narrative: GENERAL: Well-appearing, well-nourished, and in no acute distress. HEAD: Normocephalic, atraumatic. EYES: PERRLA and EOMI. ENT: Nares clear, no rhinorrhea or epistaxis. Mucous membranes moist. NECK: Supple. CHEST: Clear to auscultation. No respiratory distress. HEART: Regular rate and rhythm. No murmur heard. Normal peripheral pulses. ABDOMEN: Soft, nontender, nondistended, normal active bowel sounds. EXTREMITIES: Normal range of motion. No edema. SKIN: Warm, dry, no rash. NEURO: No focal deficits. Alert and oriented x3. PSYCH: Normal mood and affect. Course Vital Signs Vital signs: Vital Signs Temperature 36.7 C 10/27/25 23:39 Pulse Rate 57 L 10/27/25 23:39 Respiratory Rate 15 10/27/25 23:39 Blood Pressure 129/22 L 10/27/25 23:39 Pulse Oximetry 100 10/27/25 23:39 Oxygen Delivery Room Air 10/27/25 23:39 Temperature 36.7 C 10/27/25 23:39 Pulse Rate 52 L 10/28/25 02:19 Respiratory Rate 19 10/28/25 02:19 Blood Pressure 116/66 10/28/25 02:19 Pulse Oximetry 98 10/28/25 02:19 Oxygen Delivery Room Air 10/28/25 02:19 MDM Differential Diagnosis Differential Diagnosis: ACS, pancreatitis, esophageal spasm, pneumothorax, EKG showed no acute ischemic changes Initial troponin was negative Repeat troponin was negative AST and ALT were slightly elevated at 59 and 69 respectively bilirubin was normal lipase was normal white blood cell count was normal at 6.8 Chest x-ray showed no focal infiltrate Lab Data 10/28/25 00:00 10/28/25 00:00 Labs: Lab Results 10/28/25 10/28/25 Range/Units 00:00 02:47 WBC 6.8 (4.5-10.0) K/mm3 RBC 3.91 L (4.2-5.4) M/mm3 Hgb 12.4 (12.0-15.0) g/dL Hct 37.2 (37.0-47.0) % MCV 95.1 (80-100) fl MCH 31.7 (26-34) pg MCHC 33.3 (32-36) g/dl RDW 13.0 (11.5-14.5) % Plt Count 187 (150-375) k/mm3 MPV 10.1 (7.4-10.4) fl Immature Gran % (Auto) 0.3 (0-0.5) % Neut % (Auto) 48.6 (45.5-73.1) % Lymph % (Auto) 40.0 (18.3-44.2) % [place] % (Auto) 7.9 (2.6-8.5) % Eos % (Auto) 2.8 (0-4.4) % Baso % (Auto) 0.4 (0.2-1.2) % Lymph # (Auto) 2.73 (0.9-3.2) K/mm3 [place] # (Auto) 0.5 (0.1-0.6) K/mm3 Eos # (Auto) 0.2 (0-0.3) K/mm3 Baso # (Auto) 0.0 (0.0-0.1) K/mm3 Abs Immat Gran (auto) 0.02 (0.00-0.031) K/mm3 Absolute Neuts (auto) 3.3 (1.3-6.7) K/mm3 Absolute Nucleated RBC 0.000 (0.0-0.012) K/mm3 Nucleated RBC % 0.0 (0.0-0.2) % PT 21.5 H (11.1-14.7) Seconds INR 1.9 APTT 49.7 H (22.3-36.8) Seconds Sodium 138 (137-145) mmol/L Potassium 4.1 (3.4-5.0) mmol/L Chloride 105 (98-107) mmol/L Carbon Dioxide 28 (22-30) mmol/L Anion Gap 5 (4-12) mmol/L BUN 12 (7-17) mg/dL Creatinine 0.67 L (0.7-1.0) mg/dL Estim Creat Clear Calc Not Reportable Estimated GFR > 60 (59 - ) Glucose 76 (65-110) mg/dL Calcium 9.0 (8.4-10.2) mg/dL Total Bilirubin 0.4 (0.2-1.3) mg/dL AST 59 H (14-36) U/L ALT 69 H (6-35) U/L Alkaline Phosphatase 84 (38-126) U/L Troponin I < 0.012 < 0.012 (0.000-0.034) ng/mL Total Protein 6.6 (6.3-8.2) g/dL Albumin 3.7 (3.5-5.1) g/dL Lipase 93 (23-300) U/L Discharge Plan Discharge Clinical Impression: Chest pain Patient Disposition: Home Condition: Stable Instructions: Antibiotic Form, Chest Pain (ED) Additional Instructions: Please follow-up with your primary care provider may need additional testing as outpatient. If her symptoms worsen please return to the emergency department. Patient Language: [place] Prescriptions: No Action bupropion HCl 150 mg tablet extended release 24 hr 150 mg PO QAM rosuvastatin 40 mg tablet 40 mg PO DAILY Xarelto 20 mg tablet 20 mg PO DAILY Rx Instructions: must administer with evening meal magnesium 200 mg tablet 200 mg PO DAILY diltiazem HCl [Tiadylt ER] 120 mg capsule,extended release 24 hr 120 mg PO DAILY cholecalciferol (vitamin D3) 50 mcg (2,000 unit) capsule 50 mcg PO DAILY Vitamin B-12 50 mcg tablet 50 mcg PO DAILY escitalopram oxalate 10 mg tablet PO triamcinolone acetonide 40 mg/mL suspension 40 mg intra-articular ONCE Qty: 1 0RF Adult Probiotic 1 cap PO DAILY Adults Multivitamin 1 cap PO DAILY pantoprazole 40 mg tablet,delayed release (DR/EC) 40 mg PO DAILY acetaminophen 500 mg Capsule 500 mg PO Q6H PRN (Reason: Pain) Glucosamine 1 cap PO DAILY Tri-Calcium Citrate 500 mg BYMOUTH DAILY Tylenol PM 2 cap PO HS potassium chloride 10 mEq tablet extended release 10 meq PO BID Follow-up/Referrals: Francis Carey [Other] Time of Disposition: 03:36
== END 2025-10-28 03:53 | disposition home or self-care (01) ==
PROVIDERS: Emergency Provider Emergency Medicine
DX: R07.9 Chest pain, unspecified (principal); I48.91 Unspecified atrial fibrillation; E78.5 Hyperlipidemia, unspecified; I10 Essential (primary) hypertension; Z79.01 Long term (current) use of anticoagulants
CPT/HCPCS: 36415; 71046; 80053; 83690; 84484; 85025; 85610; 85730; 93005; 99284